=== PATIENT | male | born 1960 | race Caucasian/White ===

== ENCOUNTER 2020-08-01 11:11 | Emergency (ER) | payer OTHER ==
[~2020-08-01] VITALS: Ht 170.2 cm; Wt 88.0 kg
[2020-08-01 12:21] VITALS: Ht 170.2 cm; Wt 88.0 kg
[2020-08-01 13:57] VITALS: BP 116/81
== END 2020-08-01 13:57 | disposition home or self-care (01) ==
LOC: ED 11:11
DX: T15.01XA Foreign body in cornea, right eye, initial encounter (principal); Z91.048 Other nonmedicinal substance allergy status; W45.8XXA Other foreign body or object entering through skin, initial encounter; Y93.89 Activity, other specified; Y92.89 Other specified places as the place of occurrence of the external cause; Y99.8 Other external cause status
CPT/HCPCS: 90715